=== PATIENT | male | born 1990 | race Caucasian/White ===

== ENCOUNTER 2016-09-01 09:14 | Emergency (ER) | payer MEDICAID ==
[~2016-09-01] VITALS: Ht 160 cm; Wt 62.1 kg
[2016-09-01] MEDS ORDERED: HYDROCODONE/APAP 10-325 MG TABLET PO ONE (09:45)
--- NOTE | 2016-09-01 09:45 | NUR ---
Patient discharged to home in stable conditon. Written and verbal after care instructions given. Patient verbalizes understanding of instructions.
[2016-09-01] MEDS ORDERED: HYDROCODONE/APAP 10-325 MG TABLET ONE (09:54)
== END 2016-09-01 09:46 | disposition home or self-care (01) ==
LOC: ER 09:14
DX: S31.21XA Laceration without foreign body of penis, initial encounter (principal); X58.XXXA Exposure to other specified factors, initial encounter; Y93.89 Activity, other specified; Y92.89 Other specified places as the place of occurrence of the external cause; Y99.8 Other external cause status
CPT/HCPCS: A4663